=== PATIENT | female | born 1990 | race Caucasian/White ===

== ENCOUNTER 2017-06-11 22:43 | Inpatient (IN) | payer BC, OTHER ==
[~2017-06-11] VITALS: Ht 170.2 cm; Wt 72.6 kg
--- NOTE | 2017-06-12 00:45 | NUR ---
Pre-Admission Note: Pt is 27F, AOx4 with no acute distress. Explained policies and procedures of the unit. Pt verbalized understanding. Pt reports ETOH use. Pt is from [place] and took an airplane to get to [facility]. Pt stated she drank ETOH right before boarding the plane. BP: 141/102, HR: 109, T: 98.2, RR: 18, SpO2: 98%. Pain: 0/10. Awaiting pt arrival to the unit.
--- NOTE | 2017-06-12 00:53 | NUR ---
Admission Note: Pt admitted to [facility] at 0053. Pt is a 27F, AOx4 without s/s of acute distress noted. BP: 141/102, HR: 109, T: 98.2, RR: 18, SpO2: 98%. Pain: 0/10. Weight: 160 lbs, Height: 5'7". Pt noted with NKA. Pt reported current ETOH use and dependence. Pt first drank ETOH (Diana) 14 years ago. Pt drinks 750ml of Diana daily for the past 2 months. Pt last drank a glass of Diana on 06/12/17 at 2030 before getting on the plane. Initial CIWA assessment 8. Pt verbalized starting to feel withdrawal symptoms. Heart Rate regular. Respirations even and unlabored. Bowel sounds active x 4 quadrants. Pt reported going to 7 previous detox facilties. Most recent detox was at [facility] in [place], [place] (March 2017). Pt stated that she is more motivated now during this admission. Pt reported currently taking Seroquel for sleep and Vistaril for Anxiety. Pt also takes Pro-Air for rescue inhaler. Pt reported hx of PNA, Asthma, Hep C, 3x Herniated Discs, Anxiety, Depression, Bipolar Disorder, and (October 2016). Pt smokes 10-20 cigarettes daily and is moderately dependent on them but pt refuses smoking cessation. Pt denies any suicidal/homicidal ideations at this time. Educated pt about current plan of care and verbalized support for pt. Encouraged pt to verbalize feelings. Bed in lowest position. Side rails up x2. Bed padded for safety. All needs attended and met. Call light functioning and within reach. Will continue to monitor.
[2017-06-12 01:00] VITALS: BP 141/102
[2017-06-12] MEDS ORDERED: MIRALAX 17 GM POWD.PACK PO PRN (01:00)
[2017-06-12] MEDS ORDERED: THIAMINE HCL 200 MG/2 ML VIAL IM ONE (01:00)
[2017-06-12] MEDS ORDERED: HYDROXYZINE PAMOATE 25 MG CAPSULE PO PRN (01:00)
[2017-06-12] MEDS ORDERED: LOPERAMIDE HCL 2 MG CAPSULE PO PRN ×2 (01:00)
[2017-06-12] MEDS ORDERED: ONDANSETRON 4 MG/2 ML VIAL IM PRN (01:00)
[2017-06-12] MEDS ORDERED: IBUPROFEN 400 MG TABLET PO PRN (01:00)
[2017-06-12] MEDS ORDERED: LORAZEPAM 1 MG TABLET PO PRN (01:00)
[2017-06-12] MEDS ORDERED: DICYCLOMINE HCL 20 MG TABLET PO PRN (01:00)
[2017-06-12] MEDS ORDERED: MAG HYDROX/AL HYDROX/SIMETH 30 ML LIQUID UDC PO PRN (01:00)
[2017-06-12] MEDS ORDERED: LORAZEPAM 2 MG/1 ML VIAL IM PRN (01:00)
[2017-06-12] MEDS ORDERED: MAGNESIUM HYDROXIDE 30 ML LIQUID UDC PO PRN (01:00)
[2017-06-12] MEDS ORDERED: ONDANSETRON ODT 4 MG TAB.RAPDIS SL PRN (01:00)
[2017-06-12] MEDS ORDERED: ACETAMINOPHEN 325 MG TABLET PO PRN (01:00)
[2017-06-12] MEDS ORDERED: diphenhydrAMINE 50 MG CAPSULE PO PRN (01:00)
[2017-06-12 01:42] LABS: *URINE HCG, QUAL NEGATIVE (NEGATIVE)
[2017-06-12] MEDS: LORAZEPAM 1 MG TABLET PO PRN ×2 (01:45→09:18)
--- NOTE | 2017-06-12 01:45 | NUR ---
PRN Ativan: CIWA 8. Pt starting to feel withdrawal symptoms. 1mg Ativan PRN given as ordered.
[2017-06-12 01:52] LABS: *AMPHETAMINE, URINE NEGATIVE (NEGATIVE); *BARBITURATE, URINE NEGATIVE (NEGATIVE); *CANNABINOID, URINE NEGATIVE (NEGATIVE); *COCCAINE, URINE NEGATIVE (NEGATIVE); *OPIATE, URINE NEGATIVE (NEGATIVE); *PHENCYCLIDINE SCREEN,URINE NEGATIVE (NEGATIVE)
[2017-06-12] MEDS ORDERED: LORAZEPAM 1 MG TABLET ONE (01:54)
[2017-06-12] MEDS ORDERED: THIAMINE HCL 200 MG/2 ML VIAL ONE (01:54)
[2017-06-12 02:26] LABS: BASOPHILS % (AUTO) 0.4 % (0.0-2.0); EOSINOPHILS % (AUTO) 1.2 % (0.0-7.0); HEMOGLOBIN 12.3 G/DL (12.0-16.0); LYMPHOCYTES % (AUTO) 50.4 % (20.5-51.5); MEAN CORPUSCULAR HEMOGLOBIN 29.6 UUG (27.0-31.0); MEAN CORPUSCULAR HGB CONC 34 g/dL (32.0-37.0); MEAN CORPUSCULAR VOLUME 86.9 FL (81.0-99.0); MONOCYTES # (AUTO) 0.3 K/UL (0.1-1.30); MONOCYTES % (AUTO) 7.2 % (0.0-11.0); NEUTROPHILS # (AUTO) 1.6 K/UL (1.8-8.9); NEUTROPHILS % (AUTO) 40.8 % (38.5-71.5); PLATELET COUNT (AUTO) 185 K/UL (150-450); RED BLOOD CELL COUNT(AUTO) 4.14 MIL/UL (4.2-5.4)
--- NOTE | 2017-06-12 02:45 | NUR ---
PRN Ativan Reassessment: Pt in bed with eyes closed. Unable to reassess Ativan effectiveness. No acute distress noted. Respirations even and unlabored. Will continue to monitor.
[2017-06-12 02:55] LABS: BILIRUBIN,TOTAL 0.4 mg/dL (0.2-1.0); CREATININE 0.7 mg/dL (0.6-1.3); MAGNESIUM 1.9 mg/dL (1.8-2.4); POTASSIUM 3.2 mmol/L (3.5-5.1)
[2017-06-12 03:06] LABS: THYROID STIMULATING HORMONE 2.924 mIU/mL (0.358-3.740)
[2017-06-12] MEDS ORDERED: CLON0.1T PO (03:43)
[2017-06-12] MEDS ORDERED: HYDR50CA5 PO (03:43)
[2017-06-12] MEDS ORDERED: QUET100T PO (03:43)
[2017-06-12] MEDS ORDERED: LEVE500T20 PO (03:43)
[2017-06-12] MEDS ORDERED: NORG1TAB10 PO (03:43)
[2017-06-12] MEDS ORDERED: QUET25TA PO (03:43)
[2017-06-12] MEDS ORDERED: ONDA4TAB8 SL (03:43)
[2017-06-12] MEDS ORDERED: POTASSIUM CHLORIDE 20 MEQ TAB.PRT.SR PO ONE (03:45)
[2017-06-12] MEDS ORDERED: ALBU8.5H8 INH (03:47)
[2017-06-12 04:00] VITALS: BP 116/90
[2017-06-12] MEDS ORDERED: POTASSIUM CHLORIDE 20 MEQ TAB.PRT.SR ONE (04:47)
--- NOTE | 2017-06-12 07:20 | NUR ---
End of Shift Note: Pt is a 27F, admitted for ETOH Dependence on 06/12/17. Pt is AOx4 without s/s of acute distress noted. Pt is full code, on regular diet, and on fall/seizure precautions. Pt noted with NKA. Pt reported hx of PNA, Asthma, Hep C, 3x Herniated Discs, Anxiety, Depression, Bipolar Disorder, and (October 2016). Pt slept for 5 hours. Pt is currently on PRN Ativan to manage withdrawal symptoms. Last CIWA was 4 at 0400. PRN Ativan given for CIWA 8. No N/V noted during the shift. Fall and Sz precautions observed. Bed in lowest position. Side rails up x2. Call light functioning and within reach. All needs attended and met. Will endorse to day shift nurse.
--- NOTE | 2017-06-12 07:21 | NUR ---
Start of Shift Notes: Received patient in her room. Awake, alert and verbally responsive. Oriented x 4. Appears anxious, cooperative with congruent affect. Respirations even and unlabored. No SOB noted Skin warm and dry to touch. Abdomen soft and non-distended with (+) BS in all 4 quadrants. No complains of N/V/D or constipation noted. Denies any complains of abdominal discomfort noted. Voids independently. Ambulatory ad ib with steady gait. Patient is a 27 year old female admitted for ETOH dependence who is on PRNs at this time. MD to assess taper need today. Has past medical hx of asthma, PNA, Hep C, PNA, herniated disc, anxiety, depression, bipolar disorder and on October 2016. NKA. FULL CODE. Regular diet. On fall and seizure precautions. Prior to admission, patient was using 750cc of Vodka daily x 2 months. Educated patient on her current plan of care for the day and her medication regimen. Encouraged oral fluid intake and encouraged group participation to learn new skills to prevent relapse. Will continue to monitor.
[2017-06-12 08:00] VITALS: BP 124/60
[2017-06-12] MEDS: FOLIC ACID 1 MG TABLET PO SCH (09:18)
[2017-06-12] MEDS: MULTIVITAMINS,THERAPEUTIC TABLET PO SCH (09:18)
[2017-06-12] MEDS: THIAMINE HCL 100 MG TABLET PO SCH (09:18)
--- NOTE | 2017-06-12 09:18 | NUR ---
Ativan 1 mg PO given: CIWA 6, patient presented with mild tremors, anxiety and mild agitation with mild sweats. Medicated patient with Ativan 1 mg pO given per CIWA score. Will continue to monitor for effectiveness.
[2017-06-12] MEDS ORDERED: PROAIR INH PRN (10:00)
--- NOTE | 2017-06-12 10:19 | NUR ---
Order Clarification: Seroquel Order clarification obtained regarding patient's Seroquel. Per Dr Anderson, patient is to receive 125 mg PO of Seroquel at HS. Orders read back and clarified.
[2017-06-12 12:00] VITALS: BP 130/88
[2017-06-12] MEDS: LORAZEPAM 1 MG TABLET PO SCH ×3 (12:27→20:43)
--- NOTE | 2017-06-12 12:29 | NUR ---
Taper initiated: Patient's first dose of 5-day Ativan taper given at this time.
[2017-06-12 16:00] VITALS: BP 130/79
[2017-06-12] MEDS ORDERED: QUETIAPINE FUMARATE 100 MG TABLET PO SCH ×2 (18:00→21:00)
[2017-06-12] MEDS ORDERED: QUETIAPINE FUMARATE 25 MG TABLET PO SCH ×3 (18:00→21:00)
--- NOTE | 2017-06-12 19:11 | NUR ---
End of Shift Notes: Patient started on a 5-day Ativan taper today to manage withdrawal symptoms related to ETOH. VS monitored closely. No significant abnormalities noted. Withdrawal symptoms were closely monitored. Initial CIWA 6, patient presented with anxiety, sweats, tremors, and agitation. No AV hallucinations noted. Denies S/I or H/I noted at this time. Compliant with care and treatment. Last CIWA 7. Unable to participate in group and activities due to her withdrawal symptoms. MD Anderson and MD Marie reconciled Seroquel and Proair. Patient education provided. All needs met and attended. Will continue to monitor closely.
--- NOTE | 2017-06-12 19:30 | NUR ---
Start of Shift Note: Report received from day shift nurse. Pt is a 27F, admitted for ETOH Dependence on 06/12/17. Pt was in group activity upon start of shift. Pt is AOx4 without s/s of acute distress noted. Pt is full code, on regular diet, and on fall/seizure precautions. Pt noted with NKA. Pt reported hx of PNA, Asthma, Hep C, 3x Herniated Discs, Anxiety, Depression, Bipolar Disorder, and (October 2016). Pt is currently on 5-day Ativan to manage withdrawal symptoms. Bed in lowest position. Side rails up x2. Call light functioning and within reach. All needs attended and met. Will continue to monitor.
[2017-06-12 20:00] VITALS: BP 150/97
[2017-06-12] MEDS: QUETIAPINE FUMARATE 100 MG TABLET PO SCH (20:43)
[2017-06-12] MEDS: QUETIAPINE FUMARATE 25 MG TABLET PO SCH (20:43)
[2017-06-13] VITALS: BP 123/81
[2017-06-13 04:00] VITALS: BP 132/92
[2017-06-13 06:06] LABS: HEPATITIS B SURFACE AG Negative (Negative)
--- NOTE | 2017-06-13 07:07 | NUR ---
End of Shift Note: Pt is a 27F, admitted for ETOH Dependence on 06/12/17. Pt is AOx4 without s/s of acute distress noted. Pt is full code, on regular diet, and on fall/seizure precautions. Pt noted with NKA. Pt reported hx of PNA, Asthma, Hep C, 3x Herniated Discs, Anxiety, Depression, Bipolar Disorder, and (October 2016). Pt slept for 8 hours. Pt is currently on 5-day Ativan taper to manage withdrawal symptoms. Last CIWA was 2 at 0400. No N/V noted during the shift. Fall and Sz precautions observed. Bed in lowest position. Side rails up x2. Call light functioning and within reach. All needs attended and met. Will endorse to day shift nurse.
--- NOTE | 2017-06-13 07:08 | NUR ---
Start of Shift Notes: Received patient in her room. Awake, alert and verbally responsive. Oriented x 4. Appears anxious, cooperative with congruent affect. Respirations even and unlabored. No SOB noted Skin warm and dry to touch. Abdomen soft and non-distended with (+) BS in all 4 quadrants. No complains of N/V/D or constipation noted. Denies any complains of abdominal discomfort noted. Voids independently. Ambulatory ad ib with steady gait. Patient is a 27 year old female admitted for ETOH dependence who is on a 5-day Ativan taper as ordered. No adverse reactions noted. Has past medical hx of asthma, PNA, Hep C, PNA, herniated disc, anxiety, depression, bipolar disorder and on October 2016. NKA. FULL CODE. Regular diet. On fall and seizure precautions. Prior to admission, patient was using 750cc of Vodka daily x 2 months. Educated patient on her current plan of care for the day and her medication regimen. Encouraged oral fluid intake and encouraged group participation to learn new skills to prevent relapse. Will continue to monitor.
[2017-06-13 08:00] VITALS: BP 136/89
[2017-06-13] MEDS: SPRINTEC PO SCH (08:31)
[2017-06-13] MEDS: LORAZEPAM 1 MG TABLET PO SCH ×4 (08:31→21:12)
[2017-06-13] MEDS: THIAMINE HCL 100 MG TABLET PO SCH (08:31)
[2017-06-13] MEDS: FOLIC ACID 1 MG TABLET PO SCH (08:32)
[2017-06-13] MEDS: MULTIVITAMINS,THERAPEUTIC TABLET PO SCH (08:32)
[2017-06-13] MEDS ORDERED: TUBERCULIN,PURIF.PROT.DERIV. 5 TU/0.1 ML TEST ID ONE (09:00)
[2017-06-13] MEDS ORDERED: METHOCARBAMOL 750 MG TABLET PO PRN (11:00)
[2017-06-13 12:00] VITALS: BP 135/91
[2017-06-13] MEDS: LIDOCAINE 5% PATCH TD SCH (12:43)
[2017-06-13] MEDS: GABAPENTIN 300 MG CAPSULE PO SCH ×2 (14:26→21:12)
--- NOTE | 2017-06-13 14:26 | NUR ---
Robaxin 750 mg PO given: Patient noted with complain of 6/10 myalgia to lower back. Heat packs applied with no help. Medicated patient with Robaxin 750 mg PO as ordered. Will monitor for effectiveness.
--- NOTE | 2017-06-13 14:29 | NUR ---
Therapist prompted for group today. Client agreed to attend.
--- NOTE | 2017-06-13 15:26 | NUR ---
Re-assessment: Per patient, PRN Robaxin was effective in reducing patient's myalgia. PL 09/20.
[2017-06-13 16:00] VITALS: BP 138/96
--- NOTE | 2017-06-13 18:48 | NUR ---
End of Shift Notes: Patient started on a 5-day Ativan taper today to manage withdrawal symptoms related to ETOH. VS monitored closely. No significant abnormalities noted. Withdrawal symptoms were closely monitored. Initial CIWA 7, patient presented with anxiety, sweats, tremors, and agitation. PRN Robaxin given at 1426 for myaglia with help after 1 hour. No AV hallucinations noted. Denies S/I or H/I noted at this time. Compliant with care and treatment. Last CIWA 4. Participatedin group and activities despite her withdrawal symptoms. All needs met and attended. Will continue to monitor closely.
--- NOTE | 2017-06-13 19:15 | NUR ---
START OF SHIFT Patient is a 27-year-old female admitted on 06/12/17 for ETOH dependence. Patient has past medical history of asthma, pneumonia, Hep C, anxiety, depression, bipolar disorder, (October 2016), and history of disc herniation x3. Patient is FULL code, NKA, and on regular diet. Patient is on a 5-day Ativan taper, tolerating well. Upon assessment, patient is alert and oriented x4, complaining of moderate headache and back pain. Patient is on fall and seizure precautions, safety measures in place. Patient's bed is locked in low position, side rails up x2, call light within reach. Will continue to monitor.
[2017-06-13 20:00] VITALS: BP 150/98
[2017-06-13] MEDS: QUETIAPINE FUMARATE 25 MG TABLET PO SCH (21:12)
[2017-06-13] MEDS: QUETIAPINE FUMARATE 100 MG TABLET PO SCH (21:12)
--- NOTE | 2017-06-13 21:13 | NUR ---
PRN MOTRIN Patient reports back pain 01/20. PRN Motrin given PO for pain. Patient's respirations are 18/min, even and unlabored. Safety measures in place, bed locked in low position, side rails up x2, call light with in reach. Will reassess in 1 hour.
--- NOTE | 2017-06-13 22:13 | NUR ---
PRN MOTRIN REASSESSMENT Patient reports back pain has improved; PRN Motrin effective. Patient's respirations are 18/min, even and unlabored. Safety measures in place, bed locked in low position, side rails up x2, call light with in reach. Will continue to monitor.
[2017-06-14] VITALS: BP 116/70
--- NOTE | 2017-06-14 | NUR ---
MIDNIGHT CIWA DEFERRED Midnight CIWA deferred due to patient asleep; to be assessed and scored while patient is awake per protocol. Patient's respirations are 16/min, even and unlabored. Safety measures in place, bed locked in low position, side rails up x2, call light with in reach. Will continue to monitor.
[2017-06-14 04:00] VITALS: BP 124/72
--- NOTE | 2017-06-14 04:00 | NUR ---
4AM CIWA DEFERRED 4AM CIWA deferred due to patient asleep; to be assessed and scored while patient is awake per protocol. Patient's respirations are 16/min, even and unlabored. Safety measures in place, bed locked in low position, side rails up x2, call light with in reach. Will continue to monitor.
--- NOTE | 2017-06-14 07:14 | NUR ---
END OF SHIFT Patient is a 27-year-old female admitted on 06/12/17 for ETOH dependence. Patient has past medical history of asthma, pneumonia, Hep C, anxiety, depression, bipolar disorder, (October 2016), and history of disc herniation x3. Patient is FULL code, NKA, and on regular diet. Patient is on a 5-day Ativan taper, tolerating well. Patient slept for 8 hours, total intake 500 mL, void x3, stool x0. Patient received PRN Motrin at 2113 for backache and headache; PRN Motrin was effective. Last CIWA score was 7. Patient is on fall and seizure precautions, safety measures in place. Patients bed is locked in low position, side rails up x2, call light within reach. Will endorse to day shift.
--- NOTE | 2017-06-14 07:30 | NUR ---
START OF SHIFT Pt 27 y/o female admitted for etoh dependence. Pt received in room on bed with eyes closed resting, but easily arousable to name. Pt alert and oriented to name, place, and time. Perrla. Skin warm and dry to touch. Respirations even and unlabored. Bilateral hand tremors noted. It was reported that pt slept for 8 hours last night. Bed on lowest position with side rails x 2 up for safety. Call light within reach. No distress noted at this time.
[2017-06-14 08:00] VITALS: BP 106/84
[2017-06-14] MEDS: LORAZEPAM 1 MG TABLET PO SCH ×3 (08:52→20:29)
[2017-06-14] MEDS: FOLIC ACID 1 MG TABLET PO SCH (08:52)
[2017-06-14] MEDS: GABAPENTIN 300 MG CAPSULE PO SCH ×3 (08:52→20:29)
[2017-06-14] MEDS: MULTIVITAMINS,THERAPEUTIC TABLET PO SCH (08:52)
[2017-06-14] MEDS: THIAMINE HCL 100 MG TABLET PO SCH (08:52)
[2017-06-14] MEDS: LIDOCAINE 5% PATCH TD SCH (08:53)
[2017-06-14] MEDS: SPRINTEC PO SCH (09:00)
[2017-06-14 12:31] VITALS: BP 148/91
--- NOTE | 2017-06-14 12:35 | NUR ---
Therapist prompted client to attend group today.
[2017-06-14] MEDS: IBUPROFEN 400 MG TABLET PO PRN (14:07)
--- NOTE | 2017-06-14 14:10 | NUR ---
PRN Pt with back pain 12/21. Motrin po prn per MD order given and tolerated well.
--- NOTE | 2017-06-14 15:10 | NUR ---
PRN RAJWINDER Pt states pain 09/20
[2017-06-14 16:00] VITALS: BP 142/88
--- NOTE | 2017-06-14 18:08 | NUR ---
END OF SHIFT Pt 27 y/o female admitted for etoh dependence. Pt alert and oriented to name, place, and time. Perrla. Skin warm and slightly moist to touch. Respirations even and unlabored. Bilateral hand tremors noted. Pt observed mostly in recreation room throughout the day. Pt attended group activity. Pt was seen by MD today. Pt medication compliant and tolerated well. No ASE noted. Bed on lowest position with side rails x2 up for safety. Call light within reach. No distress noted at this time.
--- NOTE | 2017-06-14 19:08 | NUR ---
PRN Pt with vomit episode x1 . Zofran IM prn per MD order given and tolerated well.
--- NOTE | 2017-06-14 19:15 | NUR ---
START OF SHIFT Received 27 year old female patient admitted on 06/12/17 for ETOH dependency. Pt is full code with NKA. She reports a PMhx of asthma, PNA, Hep C, Herniated disc x3, anxiety, depression, bipolar and in (October 2016). She reports drinking ETOH (van) 750mL daily for 2 months. Last dose was 1 glass on 06/11/17 at 2050. She is on a 5 day Ativan taper and is tolerating well. Per endorsement, pt received PRN Motrin. She is alert and oriented x4, breathing is even and unlabored. Safety measures in place. Will monitor
--- NOTE | 2017-06-14 20:08 | NUR ---
PRN REASSESSMENT PRN Zofran IM effective. Pt reports decrease in nausea and no episode of vomiting noted.
[2017-06-14 20:29] VITALS: BP 95/55
[2017-06-14] MEDS: QUETIAPINE FUMARATE 100 MG TABLET PO SCH (20:29)
[2017-06-14] MEDS: CLONIDINE HCL 0.1 MG TABLET PO PRN (20:29)
[2017-06-14] MEDS: QUETIAPINE FUMARATE 25 MG TABLET PO SCH (20:29)
--- NOTE | 2017-06-14 20:29 | NUR ---
PRN CLONIDINE Pt noted with increased BP: 147/100, HR:88. PRN Clonidine administered as ordered. Will monitor effectiveness.
--- NOTE | 2017-06-14 21:29 | NUR ---
PRN CLONIDINE REASSESSMENT PRN medication effective. BP:95/55, HR:84
[2017-06-15] VITALS (7 sets, daily range): BP systolic 112–135; BP diastolic 62–93
--- NOTE | 2017-06-15 07:09 | NUR ---
END OF SHIFT Pt is a 27 year old female patient admitted on 06/12/17 for ETOH dependency. Pt is full code with NKA. She reports a PMhx of asthma, PNA, Hep C, Herniated disc x3, anxiety, depression, bipolar and in (October 2016). She continues on a 5 day Ativan taper and is tolerating well. At 2028 she received PRN Clonidine. She slept a total of 9hrs, Intake:1153mL, Void: x3, BM:0, CIWA:3. She remains alert and oriented x4, breathing is even and unlabored. Safety measures in place. Endorsed to AM shift.
[2017-06-15 07:49] LABS: CREATININE 0.6 mg/dL (0.6-1.3); MAGNESIUM 2.3 mg/dL (1.8-2.4); POTASSIUM 4.4 mmol/L (3.5-5.1)
--- NOTE | 2017-06-15 08:00 | NUR ---
START OF SHIFT NOTE Received report from night nurse, 27 year old female patient admitted for ETOH dependence. Patient has PMH of asthma, PNA, Hep C, Herniated disc x3, anxiety, depression, bipolar and in (October 2016). Per endorsement received PRN Clonidine for increased blood pressure effective per night nurse, last CIWA score was 3, slept for 9 hours. Patient received awake, alert and oriented x4, Educated patient regarding plan of care for the day and medication regimen with good verbal understanding. Safety measures in place. call light with in reach, will continue to monitor.
[2017-06-15] MEDS: FOLIC ACID 1 MG TABLET PO SCH (08:30)
[2017-06-15] MEDS: LORAZEPAM 1 MG TABLET PO SCH ×2 (08:30→20:49)
[2017-06-15] MEDS: THIAMINE HCL 100 MG TABLET PO SCH (08:30)
[2017-06-15] MEDS: LIDOCAINE 5% PATCH TD SCH (08:30)
[2017-06-15] MEDS: GABAPENTIN 300 MG CAPSULE PO SCH ×3 (08:30→20:49)
[2017-06-15] MEDS: MULTIVITAMINS,THERAPEUTIC TABLET PO SCH (08:30)
[2017-06-15] MEDS: SPRINTEC PO SCH (08:34)
[2017-06-15] MEDS: IBUPROFEN 400 MG TABLET PO PRN (14:07)
--- NOTE | 2017-06-15 14:07 | NUR ---
PRN MOTRIN Patient c/o of headache 11/20, medicated patient with PRN Motrin 800mg Po as ordered. Will cont to monitor and reassess the patient.
--- NOTE | 2017-06-15 15:07 | NUR ---
GILMA REASSESSMENT Per patient medication effective headache subside to 07/23.
--- NOTE | 2017-06-15 18:43 | NUR ---
PRN ZOFRAN Patient reported nauseated and x1 emesis. PRN Zofran 4 mg SL given as ordered. Will cont to monitor and reassess.
--- NOTE | 2017-06-15 19:13 | NUR ---
ZOFRAN REASSESSMENT Per patient Zofran was effective emesis and nausea improved.
--- NOTE | 2017-06-15 19:23 | NUR ---
END OF SHIFT NOTE Patient cont on 5 days Ativan taper tolerating well. Patient presented with anxiety agitation, sweats, nausea, Scheduled medication administered noted to be effective. Patient received PRN Zofran SL noted to be effective. Pt Encouraged Po fluids as tolerated. Pt's last CIWA score was 5 at 1600. Vital signs WNL. All needs met. Patient attended groups and activities. Safety measures in place, call light within reach. Pt endorsed to night nurse in stable condition.
--- NOTE | 2017-06-15 19:30 | NUR ---
START OF SHIFT Pt is a 27 y/o female admitted on 06/12/17 for ETOH dependence. Pt was dependent on 750 ml of van daily for the past 2 months. Pt is full code, NKA, regular diet and on fall/seizure precautions. Pt denies hx of seizures. Pt reports PMH of asthma, hepatitis C, herniated disc with chronic back pain, anxiety, depression and bipolar. Pt is on a 5 day Ativan taper that started 06/12/17, tolerating well. Upon assessment pt presents with anxiety, restlessness, appetite loss, sweats, intermittent chills, flushed skin, anhedonia and dysphoria. Pt also complains of headache and back pain 11/20. Respirations 16, even and unlabored. Denies N/V/D. Denies chest pain or SOB. No wheezing present. Medications due. Safety measures in place. Call light within reach. Will continue to monitor.
[2017-06-15] MEDS: QUETIAPINE FUMARATE 100 MG TABLET PO SCH (20:49)
[2017-06-15] MEDS: QUETIAPINE FUMARATE 25 MG TABLET PO SCH (20:49)
[2017-06-15] MEDS: CLONIDINE HCL 0.1 MG TABLET PO PRN (20:59)
--- NOTE | 2017-06-15 20:59 | NUR ---
PRN CLONIDINE ADMINISTRATION BP 135/93 HR 91, orders to give if BP > 140/90. Safety measures in place. Call light within reach. Will continue to monitor.
--- NOTE | 2017-06-15 21:59 | NUR ---
PRN CLONIDINE REASSESSMENT BP 130/81 HR 78, Clonidine effective in managing BP. Safety measures in place. Call light within reach. Will continue to monitor.
--- NOTE | 2017-06-16 | NUR ---
CIWA DEFERRED AND VITALS REFUSED Pt is laying in bed with eyes closed, CIWA deferred, to be assessed when pt is awake per orders. Vitals refused. Respirations 16, even and unlabored. Safety measures in place. Call light within reach. Will continue to monitor.
--- NOTE | 2017-06-16 07:07 | NUR ---
END OF SHIFT Pt is a 27 y/o female admitted on 06/12/17 for ETOH dependence. Pt was dependent on 750 ml of van daily for the past 2 months. Pt is full code, NKA, regular diet and on fall/seizure precautions. Pt denies hx of seizures. Pt reports PMH of asthma, hepatitis C, herniated disc with chronic back pain, anxiety, depression and bipolar. Pt is on a 5 day Ativan taper that started 06/12/17, tolerating well. Pt presented with anxiety, restlessness, appetite loss, sweats, intermittent chills, flushed skin, anhedonia and dysphoria. Pt also complained of headache and back pain 5/10 that reduced to 3/10. Scheduled medications and PRN Clonidine administered, effective in S/S of withdrawal as verbalized by pt. Last CIWA 7 at 1999. Pt slept 8 hours. Intake 1296 ml, void x 3, stool x 1. Safety measures in place. Call light within reach. Pts needs have been met. Endorsed to day shift nurse.
--- NOTE | 2017-06-16 07:46 | NUR ---
START OF SHIFT NOTE Received report from night nurse, 27 year old female patient admitted for ETOH dependence. Patient has PMH of asthma, PNA, Hep C, Herniated disc x3, anxiety, depression, bipolar and in (October 2016). Per endorsement received PRN Clonidine for increased blood pressure effective per night nurse, last CIWA score was 7, slept for 8 hours. Patient received awake, alert and oriented x4, Educated patient regarding plan of care for the day and medication regimen with good verbal understanding. Safety measures in place. call light with in reach, will continue to monitor.
[2017-06-16 08:00] VITALS: BP 123/72
[2017-06-16] MEDS: GABAPENTIN 300 MG CAPSULE PO SCH ×3 (08:07→20:45)
[2017-06-16] MEDS: LIDOCAINE 5% PATCH TD SCH (08:07)
[2017-06-16] MEDS: THIAMINE HCL 100 MG TABLET PO SCH (08:07)
[2017-06-16] MEDS: MULTIVITAMINS,THERAPEUTIC TABLET PO SCH (08:07)
[2017-06-16] MEDS: FOLIC ACID 1 MG TABLET PO SCH (08:07)
[2017-06-16] MEDS: SPRINTEC PO SCH (08:08)
[2017-06-16] MEDS ORDERED: LORAZEPAM 1 MG TABLET PO SCH (09:00)
[2017-06-16 12:00] VITALS: BP 138/80
--- NOTE | 2017-06-16 14:24 | NUR ---
Therapist prompted client about group times. Client stated he will attend all groups today.
[2017-06-16 16:00] VITALS: BP 136/87
--- NOTE | 2017-06-16 19:13 | NUR ---
END OF SHIFT NOTE Patient completed her 5 days Ativan taper tolerated well. Patient presented with anxiety agitation, sweats, nausea, Scheduled medication administered noted to be effective. Patient did not receive any PRN medication. Pt Encouraged Po fluids as tolerated. Pt's last CIWA score was 3 at 1600. Vital signs WNL. All needs met. Patient attended groups and activities. Safety measures in place, call light within reach. Pt endorsed to night nurse in stable condition.
--- NOTE | 2017-06-16 19:30 | NUR ---
START OF SHIFT Pt is a 27 y/o female admitted on 06/12/17 for ETOH dependence. Pt was dependent on 750 ml of van daily for the past 2 months. Pt is full code, NKA, regular diet and on fall/seizure precautions. Pt denies hx of seizures. Pt reports PMH of asthma, hepatitis C, herniated disc with chronic back pain, anxiety, depression and bipolar. Pt is on a 5 day Ativan taper that started 06/12/17, tolerating well. Upon assessment pt presents with anxiety, restlessness, appetite loss, anhedonia and dysphoria. Pt also complains of back pain 11/20. Respirations 16, even and unlabored. Denies N/V/D. Denies chest pain or SOB. No wheezing present. Medications due. Safety measures in place. Call light within reach. Will continue to monitor. Addendum: 06/17/17 at 0218 by ALONDRA WHALEN RN PT WAS ON A 5 DAY ATIVAN TAPER, FINISHED TAPER. PT IS SCHEDULED TO BE D/C TOMORROW.
[2017-06-16] MEDS ORDERED: CLON0.1T14 PO (19:40)
[2017-06-16] MEDS ORDERED: METH-406 PO (19:40)
[2017-06-16] MEDS ORDERED: QUET25TA PO (19:40)
[2017-06-16] MEDS ORDERED: IBUP-1953 PO (19:40)
[2017-06-16] MEDS ORDERED: FOLI1TAB16 PO (19:40)
[2017-06-16] MEDS ORDERED: QUET100T PO (19:40)
[2017-06-16] MEDS ORDERED: ALBU8.5H8 INH (19:40)
[2017-06-16] MEDS ORDERED: HYDR50CA5 PO (19:40)
[2017-06-16] MEDS ORDERED: ONDA4TAB11 SL (19:40)
[2017-06-16] MEDS ORDERED: LIDO30AD10 TD (19:40)
[2017-06-16] MEDS ORDERED: GABA-534 PO (19:40)
[2017-06-16] MEDS ORDERED: THIA100T13 PO (19:40)
[2017-06-16] MEDS ORDERED: LEVE500T20 PO (19:40)
[2017-06-16 20:00] VITALS: BP 136/94
[2017-06-16] MEDS: QUETIAPINE FUMARATE 25 MG TABLET PO SCH (20:45)
[2017-06-16] MEDS: IBUPROFEN 400 MG TABLET PO PRN (20:45)
[2017-06-16] MEDS: QUETIAPINE FUMARATE 100 MG TABLET PO SCH (20:45)
[2017-06-16] MEDS: CLONIDINE HCL 0.1 MG TABLET PO PRN (21:49)
--- NOTE | 2017-06-16 21:49 | NUR ---
PRN CLONIDINE ADMINISTRATION BP 136/94 HR 85, orders to give Clonidine for BP >140/90. Safety measures in palce. Call light within reach. Will continue to monitor.
--- NOTE | 2017-06-16 22:49 | NUR ---
PRN CLONIDINE REASSESSMENT BP 124/83 HR 78, Clonidine effective in reducing BP. Safety measures in place. Call light within reach. Will continue to monitor.
--- NOTE | 2017-06-17 07:33 | NUR ---
END OF SHIFT Pt is a 27 y/o female admitted on 06/12/17 for ETOH dependence. Pt was dependent on 750 ml of van daily for the past 2 months. Pt is full code, NKA, regular diet and on fall/seizure precautions. Pt denies hx of seizures. Pt reports PMH of asthma, hepatitis C, herniated disc with chronic back pain, anxiety, depression and bipolar. Pt was on a 5 day Ativan taper that started 06/12/17, finished taper and pt is scheduled to be d/c today. Pt presented with anxiety, restlessness, appetite loss, anhedonia and dysphoria. Scheduled medications and PRN Clonidine administered, effective in S/S of withdrawal as verbalized by pt. Last CIWA 2 at 1999. Pt slept 6 hours. Intake 500 ml, void x 2, stool x 0. Safety measures in place. Call light within reach. Pts needs have been met. Endorsed to day shift nurse.
[2017-06-17 08:00] VITALS: BP 108/72
--- NOTE | 2017-06-17 08:08 | NUR ---
START OF SHIFT NOTE Received report from night nurse, 27 year old female patient admitted for ETOH dependence. Patient has PMH of asthma, PNA, Hep C, Herniated disc x3, anxiety, depression, bipolar and in (October 2016). Per endorsement received PRN Clonidine for increased blood pressure effective per night nurse, last CIWA score was 2, slept for 6 hours. Patient received awake, alert and oriented x4, Educated patient regarding plan of care for the day and medication regimen with good verbal understanding. Safety measures in place. call light with in reach, will continue to monitor.
[2017-06-17] MEDS: SPRINTEC PO SCH (08:26)
[2017-06-17] MEDS: GABAPENTIN 300 MG CAPSULE PO SCH (08:26)
[2017-06-17] MEDS: MULTIVITAMINS,THERAPEUTIC TABLET PO SCH (08:26)
[2017-06-17] MEDS: THIAMINE HCL 100 MG TABLET PO SCH (08:26)
[2017-06-17] MEDS: LIDOCAINE 5% PATCH TD SCH (08:26)
[2017-06-17] MEDS: FOLIC ACID 1 MG TABLET PO SCH (08:27)
--- NOTE | 2017-06-17 10:00 | NUR ---
DISCHARGE NOTE Patient is in stable condition. Vital signs WNL,Patient is alert oriented x4, Skin intact warm and dry tot touch. Patient denies any SI/HI ideations. All discharge paper work done signed and dated. Patient educated about discharge instructions, Pt verbalized understanding. Patient 's last COWS score was 2. Patient discharged from [facility] on 06/17/17 at 1000. Patient left the building with all of her belongings and prescriptions, medications she brought to the unit. has been contracted and notified of Pt's discharge.
== END 2017-06-17 10:00 | disposition other institution (70) | DRG 895 ==
LOC: SRC 06-12
PROVIDERS: ADMIT Internal Medicine; ATTEND Internal Medicine
PROC: HZ2ZZZZ Detoxification Services for Substance Abuse Treatment (ICD-10-PCS; principal; 2017-06-12)
PROC: HZ41ZZZ Group Counseling for Substance Abuse Treatment, Behavioral (ICD-10-PCS; 2017-06-13)
PROC: HZ31ZZZ Individual Counseling for Substance Abuse Treatment, Behavioral (ICD-10-PCS; 2017-06-13)
DX: F10.230 Alcohol dependence with withdrawal, uncomplicated (principal); K70.10 Alcoholic hepatitis without ascites; F31.9 Bipolar disorder, unspecified; I15.9 Secondary hypertension, unspecified; F14.10 Cocaine abuse, uncomplicated; Y90.5 Blood alcohol level of 100-119 mg/100 ml; J45.20 Mild intermittent asthma, uncomplicated; Z81.1 Family history of alcohol abuse and dependence; Z80.9 Family history of malignant neoplasm, unspecified; E87.6 Hypokalemia; F17.210 Nicotine dependence, cigarettes, uncomplicated; G89.29 Other chronic pain; M54.5 Low back pain; Z59.1 Inadequate housing; B18.2 Chronic viral hepatitis C; Z79.899 Other long term (current) drug therapy; F11.21 Opioid dependence, in remission; F41.9 Anxiety disorder, unspecified; R73.9 Hyperglycemia, unspecified
CPT/HCPCS: 36415; 70030-TC; 80307; 83690; 83735; 84100; 84443; 84703; 85025; 86580; 86592; 86705; 86803; 87340; 87806; G0480; J2405; J3411; Q0162